=== PATIENT | male | born 1990 | race Caucasian/White ===

== ENCOUNTER 2018-09-14 14:54 | Emergency (ER) | payer MEDICAID ==
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
== END 2018-09-14 16:28 | disposition home health service (06) ==
LOC: JD.ED 14:54
DX: Z59.0 Homelessness (principal); Z88.0 Allergy status to penicillin; Z87.891 Personal history of nicotine dependence
CPT/HCPCS: 36415; 80053; 80306; 85025; 99283; G0480